=== PATIENT | female | born 1975 | race African-American/Black ===

== ENCOUNTER 2019-05-17 09:17 | Emergency (ER) | payer MEDICAID ==
[~2019-05-17] VITALS: Ht 170.2 cm; Wt 77.3 kg
[2019-05-17 10:24] VITALS: BP 124/86
[2019-05-17] MEDS ORDERED: SULFAMETHOX/TRIMETH DS 800-160 MG/TABLET PO ONE (10:45)
[2019-05-17] MEDS ORDERED: IBUPROFEN 600 MG TABLET PO ONE (10:45)
== END 2019-05-17 11:14 | disposition home or self-care (01) ==
LOC: EMS 09:21
DX: L03.011 Cellulitis of right finger (principal); L08.9 Local infection of the skin and subcutaneous tissue, unspecified; F17.210 Nicotine dependence, cigarettes, uncomplicated